=== PATIENT | male | born 1985 | race Caucasian/White ===

== ENCOUNTER 2021-07-28 21:13 | Emergency (ER) | payer MEDICARE, MEDICAID, SELFPAY | END 2021-07-28 21:30 | disposition left against medical advice (07) | PROVIDERS: Emergency Provider Emergency Medicine | DX: M79.10 Myalgia, unspecified site (principal) ==

== ENCOUNTER 2021-07-29 14:40 | Emergency (ER) | payer MEDICARE, MEDICAID, SELFPAY ==
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
[2021-07-29 15:01] VITALS: BMI 23.7
[2021-07-29 15:13] VITALS: BP 157/91; PULSE 53; RESP 14; O2SAT 98
[2021-07-29 16:24] LABS: Amphetamine Screen Urine Not Detected (Not Detect); Barbiturates, Urine Not Detected (Not Detect); Benzodiazepines Screen Urine Not Detected (Not Detect); Cannabinoid Screen Urine Not Detected (Not Detect); Cocaine Screen Urine POSITIVE (Not Detect); Fentanyl, urine POSITIVE (Not Detect); Opiate Screen Urine POSITIVE (Not Detect); Phencyclidine Screen Urine Not Detected (Not Detect)
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
--- NOTE | 2021-07-29 17:14 | MHC.CARE ---
CARE Team spoke briefly to patient in 13H regarding his mental health and substance use; he declined needing treatment for either. He acknowledged that he is in trouble because he owes money to a dealer, was unable to say what would be most helpful to him at this time, I've just gotta face this. Patient stated that he is compliant with medication, has providers, and does not want referrals. Lengthy conversation with patient's mother in the ED waiting room, she is very concerned about her son, is only recently started using heroin, he said 6 mos. and has rapidly lost control. Is using excessive amounts daily, she found hundreds of empty heroin wrappers in his room is spending his SSI check in 1-2 days on drugs, not coming home much, has lost weight. Is letting strangers into the family home while parents are asleep or out, driving people places, giving money, seems exploited. Patient's mother applied for a Section 35 and it was approved to go before a youth court judge but police were unable to find patient so after 5 days it . Patient has a diagnosis of Schizoaffective D/O and has been stable on Abilify for about 2 years, is overdue for injection by a few days, she reported that he will quickly decompensate when off medication. Offered validation, encouragement, reflective listening to patient's mother. She accepted information about [facility], a support group for family/loved ones of people suffering from addiction. Will go back to court on Saturday morning and reapply. Communicated with MD and Recovery Team.
== END 2021-07-29 17:32 | disposition home or self-care (01) ==
PROVIDERS: Emergency Provider Emergency Medicine
DX: S01.81XA Laceration without foreign body of other part of head, initial encounter (principal); G44.309 Post-traumatic headache, unspecified, not intractable; F25.9 Schizoaffective disorder, unspecified; F11.90 Opioid use, unspecified, uncomplicated; W26.9XXA Contact with unspecified sharp object(s), initial encounter; Y93.9 Activity, unspecified; Y92.9 Unspecified place or not applicable; Y99.9 Unspecified external cause status; Z79.899 Other long term (current) drug therapy
CPT/HCPCS: 12013; 80307; 99284; 99285

== ENCOUNTER 2021-10-24 04:32 | Emergency (ER) | payer MEDICARE, MEDICAID, SELFPAY ==
[2021-10-24 04:39] VITALS: BP 134/89; BP 148/96; PULSE 100; PULSE 93; RESP 16; TEMP 36.6; O2SAT 96; O2SAT 97; BMI 26.6
--- NOTE | 2021-10-24 04:48 | ECG_ITS ---
Test Reason : OVERDOSE Blood Pressure : / mmHG Vent. Rate : 089 BPM Atrial Rate : 089 BPM P-R Int : 150 ms QRS Dur : 096 ms QT Int : 362 ms P-R-T Axes : 072 031 036 degrees QTc Int : 440 ms Normal sinus rhythm Normal ECG No previous ECGs available Referred By: Isha Kennedy Electronically Signed By:Deepak Gutiérrez
[2021-10-24 06:18] VITALS: BP 121/87; PULSE 86; RESP 18; O2SAT 96
[2021-10-24] MEDS: Naloxone HCl Nasal TAKE HOME 4 MG SPRAY NOSTRILALT (06:39)
[2021-10-24] MEDS: Ondansetron ODT 4 MG TAB.RAPDIS TRANSLINGU (06:39)
--- NOTE | 2021-10-24 06:40 | ED.OVERDOSE ---
HPI - Overdose General Chief Complaint: Overdose Stated Complaint: overdose Time Seen by Provider: 10/24/21 06:32 Source: patient Mode of arrival: EMS History of Present Illness HPI Narrative: This is a 36-year-old male who states that he was snorting cocaine all day and than did a half bag of heroin and states that took less than a minute and then the next thing he woke up the ambulance was there. He denies any suicidal ideation in states that he recently got out of a rehab program. As per EMS patient received a total of 6 mg of Narcan from them and initially received 2 mg from police when patient was found unresponsive. Otherwise, patient has no acute complaints. Related Data Allergies Allergy/AdvReac Type Severity Reaction Status Date / Time Penicillins [PENICILLINS] Allergy Unknown RASH Unverified 07/14/20 15:43 Review of Systems Review of Systems: Pertinent pertinent positives and negatives as stated in HPI 10 point review of systems is otherwise negative. PMFSH Past Medical History Source: nursing notes reviewed Medical History Schizoaffective disorder Social History Social History Patient Tobacco Use Status: Tobacco use Unknown Use of substances other than those prescribed or required for medical reasons: Yes Substance Use Type: Crack/Cocaine Advance Directives: No Advance Directives Information Provided: Yes Physical Exam Vital Signs: Vital Signs: Last Vital Signs Temp 97.8 F 10/24/21 04:39 Pulse 86 10/24/21 06:18 Resp 18 10/24/21 06:18 BP 121/87 10/24/21 06:18 Pulse Ox 96 10/24/21 06:18 BMI result Body Mass Index 26.6 VITAL SIGNS: Reviewed. GENERAL: Well developed, well nourished, in no acute distress. HEAD: Normocephalic/atraumatic EYES: PERRLA, EOMI LUNGS: Normal breath sounds. No adventitious sounds or accessory muscle use. SpO2<96> CARDIOVASCULAR: Regular rate and rhythm without noted murmurs ABDOMEN: Soft, non-tender, non-distended with bowel sounds. NEUROLOGIC: Alert and oriented x 4. Course Course Course Narrative: 36-year-old male with history and clinical presentation consistent with accidental overdose and was observed for 2 hours and noted to tolerate oral intake prior to being discharged in stable condition. Patient was discharged with home Narcan. MDM - Overdose ECG Data Attestation: I personally reviewed and interpreted this ECG as follows: Interpretation: Normal sinus rhythm, HR-89, no STEMI, AK/QRS/QTC is within normal limits. Discharge Plan Discharge Clinical Impression: Drug overdose Patient Disposition: Home, Self-Care Instructions: Adult Overdose (ED) Additional Instructions: Stop doing drugs. Interventions: ED Discharge Assessment Last Done: 10/24/21 06:41
--- NOTE | 2021-10-24 06:44 | PC.NURSE ---
pt denies SI/Hi. rehab support and services offered pt refused at this time. Provider is aware. Narcan education completed at discharge with medication.
== END 2021-10-24 06:45 | disposition home or self-care (01) ==
PROVIDERS: Emergency Provider Student in an Organized Health Care Education/Training Program
DX: T40.1X1A Poisoning by heroin, accidental (unintentional), initial encounter (principal); Y92.9 Unspecified place or not applicable; F14.90 Cocaine use, unspecified, uncomplicated
CPT/HCPCS: 93005; 99284; 99285

== ENCOUNTER 2021-10-28 12:16 | Inpatient (IN) | payer MEDICARE, MEDICAID, SELFPAY ==
[2021-10-28] VITALS (7 sets, daily range): BP systolic 104–141; BP diastolic 65–92; PULSE 88–102; RESP 18–28; O2SAT 90–98; BMI 26.6
--- NOTE | ~2021-10-28 | XR_ITS ---
EXAMINATION: XR CHEST CLINICAL INFORMATION: Overdose, hypoxia COMPARISON: None TECHNIQUE: Portable AP upright view of the chest was obtained. FINDINGS: Cardiac and mediastinal silhouettes are normal in appearance. The lungs and pleural spaces are clear. No acute osseous abnormalities. XR/XR chest 1V IMPRESSION: Unremarkable examination.
--- NOTE | 2021-10-28 12:29 | ED_ITS ---
HPI - Overdose General Chief Complaint: Overdose Stated Complaint: IPIOID OD,12MG NARCAN GIVEN,94% ON 4LPM Time Seen by Provider: 10/28/21 12:20 Source: patient, family, EMS and old records reviewed Mode of arrival: EMS Limitations: no limitations History of Present Illness HPI Narrative: 36 y/o male with history of polysubstance IV drug abuse (heroin and cocaine) who just got out of detox 2 weeks ago presents to the ER from home via EMS after his mother found him unresponsive and blue after he used 1 bag of heroin. Mother gave him 4 mg IN narcan and called 911. Police administered a total of 12 mg in 3 rounds. He was vomiting when he woke up. EMS found him hypoxic and he was placed on 4L NC with SpO2 91-95%. He arrives to the ER AAOx3, coughing and hypoxic requiring 4L. He reports nausea and vomited x2. complaint: accidental overdose Onset (ago): minute(s) Timing confirmed by: family member Intent: unknown How Overdose Was Discovered: family/friend present at time Context: Accidental Overdose: wanted to get high Treatments Prior to Arrival: oxygen and narcan Related Data Home Medications Medication Instructions Recorded Confirmed aripiprazole 400 mg intramuscular 1 vial IM Q4W 10/28/21 10/28/21 suspension,extended release (Abilify Maintena) Allergies Allergy/AdvReac Type Severity Reaction Status Date / Time Penicillins [PENICILLINS] Allergy Unknown RASH Unverified 07/14/20 15:43 Review of Systems Review of Systems: Constitutional: No Fever, No Chills ENT/Mouth: No sore throat, No Rhinorrhea, No Swallowing Difficulty Eyes: No Eye Pain, No Swelling, No Redness Cardiovascular: No Chest Pain, + SOB, No Orthopnea, No Edema Respiratory: + Cough, No Sputum, No Wheezing, No dyspnea Gastrointestinal: + Nausea, + Vomiting, No Diarrhea, No abdominal Pain Genitourinary: No Dysuria, No Urinary Frequency, No Hematuria Musculoskeletal: No joint pain, No Myalgias Skin: No Skin Lesions, No rash Neuro: No Weakness, No Numbness, No Dizziness, + Headache Psych: No Anxiety/Panic, No Depression Heme/Lymph: No Bruising, No Lymphadenopathy PMFSH Past Medical History Medical History Schizoaffective disorder Social History Social History Alcohol intake: unknown Patient Tobacco Use Status: Tobacco use Unknown Use of substances other than those prescribed or required for medical reasons: Yes Substance Use Type: Crack/Cocaine and Heroin Substance Use Frequency: Chronic Longstanding Substance Use Frequency Other:: recently at detox Last Used Substance: Just Prior to Admission Any prior treatment program specific to substance use: Yes Advance Directives: No Advance Directives Information Provided: No Physical Exam Vital Signs: Vital Signs: Last Vital Signs Pulse 99 10/28/21 15:18 Resp 18 10/28/21 15:18 BP 104/65 10/28/21 12:21 Pulse Ox 92 10/28/21 13:58 BMI result Body Mass Index 26.6 Appearance: Alert. Oriented X3. On nasal cannula on EM Sstretcher - no dis tress Eyes: Pupils equal, round and reactive to light, 4mm ENT: Pharynx normal. Moist mucus membranes Neck: Normal inspection. Neck supple. CVS: Normal heart rate and rhythm. Pulses normal. Respiratory: No respiratory distress. Breath sounds coarse throughout without rhonchi or wheezing Abdomen: Soft and nontender. +BS x4 Skin: Skin warm and dry. Normal skin color. Normal skin turgor. Large well- demarcated erythematous rash on the central chest wall with flakiness consistent with history of psoriasis Extremities: No lower extremity edema. LUE with track mora from hand to AC Neuro: Oriented X 3. No motor deficit. No sensory deficit. Nonfocal Course Course Course Narrative: 36 y/o male with history of polysubstance abuse presenting with hypoxia after an unintentional overdose requiring multiple doses of narcan. + vomiting and coughing, no increased WOB or difficulty breathing. He is at risk for narcan induced pulmonary edema however his hypoxia seems to be related to aspiration pneumonitis at this time. CXR and labs ordered. IVF and zofran ordered. Now on venti-mask 55% FiO2 with SpO2 93% Reevaluation(s) Reevaluation #1: Chest x-ray without pneumonia. His hypoxia is most likely due to aspiration pneumonitis. No role for systemic steroids or empiric antibiotics at this time. Supportive care with supplemental oxygen is being provided. He remains awake and alert, asking to drink despite just vomiting a few moments prior. IV fluids and Zofran given. Reevaluation #2: Patient continues to desat while on 55% VM. Will call RT to the bedside to placed on high-flow for little bit of PEEP. Will give a trial of albuterol inhaled as well. Nebulized corticosteroids are not in stock per pharmacy. Reevaluation #3: Respiratory place patient on 100% high-flow nasal cannula with SpO2 93-94%. He is drowsy but easily arouses to voice. Will require admission to C verses ICU. Will continue to monitor for pulmonary edema however he has a normal respiratory rate with no increased work of breathing at this time. Per Nursing Marketing Reporting Analyst only 2 ICU nurses today and tomorrow, will have to admit to [facility] and closely monitor on continuous pulse oximetry. Hospitalist TT for admission Additional Reevaluation(s): Patient able to be weaned to 55% high-flow with sats in the mid 90s. MDM - Overdose Medical Records Attestation: I reviewed the patient's medical records. Lab Data Attestation: I reviewed the patient's lab results. Result diagrams: 10/28/21 12:41 10/28/21 12:41 Labs: Lab Results 10/28/21 10/28/21 10/28/21 Range/Units 12:41 12:41 12:41 WBC 10.0 (4.8-10.8) X10*3/uL RBC 5.11 (4.60-5.80) X10*6/uL Hgb 15.7 (14.0-18.0) g/dl Hct 46.7 (42.0-52.0) % MCV 91.4 (80.0-98.0) fL MCH 30.7 (27.0-33.0) pg MCHC 33.6 (31.0-36.0) g/dl RDW 13.0 (11.0-16.0) % Plt Count 243 (160-400) X10*3/uL MPV 9.9 (9.4-12.4) fL Immature Gran % (Auto) 1.7 H (0.0-0.4) % Neut % (Auto) 86.4 H (45-73) % Lymph % (Auto) 9.4 L (20-40) % Dickens % (Auto) 2.0 (2-11) % Eos % (Auto) 0.2 (0-4) % Baso % (Auto) 0.3 (0-2) % Lymph # (Auto) 0.9 L (1.2-4.9) X10*3/uL Dickens # (Auto) 0.2 (0.1-1.2) X10*3/uL Eos # (Auto) 0.0 (0.0-0.4) X10*3/uL Baso # (Auto) 0.0 (0.0-0.2) X10*3/uL Abs Immat Gran (auto) 0.17 H (0.00-0.03) X10*3/uL Absolute Neuts (auto) 8.7 H (2.0-8.3) x10*3/uL Absolute Nucleated RBC 0.000 (0.0-0.012) X10*3/uL Nucleated RBC % (auto) 0.0 (0.0-0.2) /100WBC Sodium 138 (135-145) mmol/L Potassium 4.2 (3.3-5.1) mmol/L Chloride 104 (96-108) mmol/L Carbon Dioxide 24 (22-29) mmol/L Anion Gap 14 (12-20) BUN 18 H (9-16) mg/dL Creatinine 1.26 (0.5-1.4) mg/dL Estim Creat Clear Calc 79.9 Estimated GFR > 60 Random Glucose 321 H (60-115) mg/dL Estimat Average Glucose mg/dL Hemoglobin A1c % % Lactic Acid (0.5-2.0) mmol/L Calcium 9.2 (8.4-10.2) mg/dL Magnesium 2.3 (1.6-2.6) mg/dL Total Bilirubin 1.2 H (0.0-1.0) mg/dL Direct Bilirubin 0.5 (0.0-0.5) mg/dL AST 28 (5-37) U/L ALT 50 H (0-40) U/L Alkaline Phosphatase 90 (39-117) U/L Total Protein 6.9 (6.5-8.0) g/dL Albumin 4.1 (3.5-5.0) g/dL Ethyl Alcohol mg/dL COVID-19 (DELMI) Negative (Negative) COVID-19 Clin Com See Note 10/28/21 10/28/21 10/28/21 Range/Units 12:41 12:41 12:41 WBC (4.8-10.8) X10*3/uL RBC (4.60-5.80) X10*6/uL Hgb (14.0-18.0) g/dl Hct (42.0-52.0) % MCV (80.0-98.0) fL MCH (27.0-33.0) pg MCHC (31.0-36.0) g/dl RDW (11.0-16.0) % Plt Count (160-400) X10*3/uL MPV (9.4-12.4) fL Immature Gran % (Auto) (0.0-0.4) % Neut % (Auto) (45-73) % Lymph % (Auto) (20-40) % Dickens % (Auto) (2-11) % Eos % (Auto) (0-4) % Baso % (Auto) (0-2) % Lymph # (Auto) (1.2-4.9) X10*3/uL Dickens # (Auto) (0.1-1.2) X10*3/uL Eos # (Auto) (0.0-0.4) X10*3/uL Baso # (Auto) (0.0-0.2) X10*3/uL Abs Immat Gran (auto) (0.00-0.03) X10*3/uL Absolute Neuts (auto) (2.0-8.3) x10*3/uL Absolute Nucleated RBC (0.0-0.012) X10*3/uL Nucleated RBC % (auto) (0.0-0.2) /100WBC Sodium (135-145) mmol/L Potassium (3.3-5.1) mmol/L Chloride (96-108) mmol/L Carbon Dioxide (22-29) mmol/L Anion Gap (12-20) BUN (9-16) mg/dL Creatinine (0.5-1.4) mg/dL Estim Creat Clear Calc Estimated GFR Random Glucose (60-115) mg/dL Estimat Average Glucose 94 mg/dL Hemoglobin A1c % 4.9 % Lactic Acid 3.1 H* (0.5-2.0) mmol/L Calcium (8.4-10.2) mg/dL Magnesium (1.6-2.6) mg/dL Total Bilirubin (0.0-1.0) mg/dL Direct Bilirubin (0.0-0.5) mg/dL AST (5-37) U/L ALT (0-40) U/L Alkaline Phosphatase (39-117) U/L Total Protein (6.5-8.0) g/dL Albumin (3.5-5.0) g/dL Ethyl Alcohol < 10 mg/dL COVID-19 (DELMI) (Negative) COVID-19 Clin Com ECG Data Attestation: I personally reviewed and interpreted this ECG as follows: ECG interpretation date: 10/28/21 ECG interpretation time: 14:39 Interpretation: normal sinus rhythm, HR 91 bpm, normal IA interval, No ST segment elevations or depressions Critical Care Time Critical Care Time Critical Care Time: Yes Total Critical Care Time: 42 Attestation: I have personally provided critical care time exclusive of time spent on separately billable procedures. Time includes review of lab data, radiology results, discussion with consultants, and monitoring for potential decompensation. Intervention performed as documented. Discharge Plan Discharge Clinical Impression: Aspiration pneumonitis, Acute respiratory failure with hypoxia Drug overdose Qualifiers: Encounter type: initial encounter Injury intent: accidental or unintentional Qualified Code(s): T50.901A - Poisoning by unspecified drugs, medicaments and biological substances, accidental (unintentional), initial encounter Patient Disposition: Admitted As Inpatient
[2021-10-28 12:48] LABS: MANUAL DIFF FLAG NO
[2021-10-28 12:49] LABS: Basophils Percent Auto 0.3 % (0-2); Eosinophils Percent Auto 0.2 % (0-4); Hematocrit 46.7 % (42.0-52.0); Hemoglobin 15.7 g/dl (14.0-18.0); Imm Gran Abs Auto 0.17 X10*3/uL (0.00-0.03); Imm Gran Pct Auto 1.7 % (0.0-0.4); Lymphocytes Absolute Auto 0.9 X10*3/uL (1.2-4.9); Lymphocytes Percent Auto 9.4 % (20-40); Mean Corpuscular HGB Conc 33.6 g/dl (31.0-36.0); Mean Corpuscular Hemoglobin 30.7 pg (27.0-33.0); Mean Corpuscular Volume 91.4 fL (80.0-98.0); Mean Platelet Volume 9.9 fL (9.4-12.4); Monocytes Absolute Auto 0.2 X10*3/uL (0.1-1.2); Neutrophils Absolute Auto 8.7 x10*3/uL (2.0-8.3); Neutrophils Percent Auto 86.4 % (45-73); Platelet Count 243 X10*3/uL (160-400); Red Blood Count 5.11 X10*6/uL (4.60-5.80)
[2021-10-28] MEDS: 0.9 % Sodium Chloride 1,000 ML 999 ML IVCONT (12:49)
[2021-10-28] MEDS: ondansetron HCL 4 MG/2 ML VIAL IVPUSH (12:49)
[2021-10-28 13:01] LABS: Lactic Acid 3.1 mmol/L (0.5-2.0)
[2021-10-28 13:04] LABS: Alanine Aminotransferase 50 U/L (0-40); Albumin Level 4.1 g/dL (3.5-5.0); Alkaline Phosphatase 90 U/L (39-117); Anion Gap 14 (12-20); Aspartate Amino Transferase 28 U/L (5-37); Bilirubin Direct 0.5 mg/dL (0.0-0.5); Bilirubin Total 1.2 mg/dL (0.0-1.0); Blood Urea Nitrogen 18 mg/dL (9-16); Calcium 9.2 mg/dL (8.4-10.2); Carbon Dioxide 24 mmol/L (22-29); Chloride 104 mmol/L (96-108); Creatinine Clr Calc Pharmacy 79.9; Estimated Glomerular Filt Rate > 60; Ethanol < 10 mg/dL; Glucose Random 321 mg/dL (60-115); Magnesium 2.3 mg/dL (1.6-2.6); Potassium 4.2 mmol/L (3.3-5.1); Sodium 138 mmol/L (135-145); Total Protein 6.9 g/dL (6.5-8.0)
[2021-10-28 13:05] LABS: COVID-19 Test Negative (Negative)
[2021-10-28 13:25] LABS: Estimated Average Glucose 94 mg/dL; Hemoglobin A1c % 4.9 %
--- NOTE | 2021-10-28 13:31 | PC.NURSE ---
pt maxed out on venti mask. rt called for hiflow per pa
[2021-10-28] MEDS: Albuterol Sulfate (0.083%) 2.5 MG/3 ML VIAL.NEB INHALE (13:48)
--- NOTE | 2021-10-28 14:10 | ECG_ITS ---
Test Reason : DSYPNEA Blood Pressure : / mmHG Vent. Rate : 091 BPM Atrial Rate : 091 BPM P-R Int : 138 ms QRS Dur : 090 ms QT Int : 360 ms P-R-T Axes : 075 044 051 degrees QTc Int : 442 ms Normal sinus rhythm Normal ECG When compared with ECG of 24-OCT-2021 04:48, No significant change was found Referred By: Geovanna Deal Electronically Signed By:Deepak Gutiérrez
--- NOTE | 2021-10-28 14:20 | PHA.MEDREC ---
Pharmacy Consult ? Medication Reconciliation Pharmacy has completed the medication reconciliation. Called and spoke with patients mother, Dorothy, she states the only medication Marvin takes is Abilify Maintena and he is overdue for his dose.
[2021-10-28 14:47] LABS: Reflex Lactate? Lactic Acid Added
--- NOTE | 2021-10-28 15:09 | P.HPHOSP_ITS ---
History of Present Illness Date of Service: 10/28/21 Chief Complaint: overdose, altered mentation a 36 years old male with schizoaffective disorder and IV polysubstance abuse who presented to the hospital by EMS after being found unresponsive and blue at home. His mother found him with 1 bag of Heroin next to him. the mother gave him 4 mg of IM Narcan and called 911 please administer total of 12 mg as well in 3 rounds and the patient woke up but started to vomit. Found hypoxic and was placed on oxygen supplement by EMS and he brought to the hospital coughing and hypoxic. The Emergency no he was alert but hypoxic. Requiring high-flow oxygen supplement Of 50 L 100%. Discussed with intensive care to admitted to ICU but with nurses shortage there is no place for the patient in the unit so hospitalist team were asked to admit IMC with ICU following case of deterioration. Admitted for further evaluation and treatment. Review of Systems Review of Systems: No fever, chills But feel generalized weakness No chest pain, palpitation shortness of breath, coughing No abdominal pain, nausea or vomiting No urinary symptoms No any rash or wounds PMFSH Medical History Schizoaffective disorder Pertinent family history: HTN in Parent Social History Alcohol intake: unknown Patient Tobacco Use Status: Tobacco use Unknown Use of substances other than those prescribed or required for medical reasons: Yes Substance Use Type: Crack/Cocaine and Heroin Substance Use Frequency: Chronic Longstanding Substance Use Frequency Other:: recently at detox Last Used Substance: Just Prior to Admission Any prior treatment program specific to substance use: Yes Advance Directives: No Advance Directives Information Provided: No Meds Allergies Allergy/AdvReac Type Severity Reaction Status Date / Time Penicillins [PENICILLINS] Allergy Unknown RASH Unverified 07/14/20 15:43 Active Medications: Current Medications Acetaminophen (Acetaminophen 325 Mg Tablet) 650 mg PO Q6H PRN PRN Reason: Pain, Mild (Pain Scale 1-3) Albuterol/Ipratropium (Albuterol/Iprat 2.5/0.5mg 3 Ml Ampul.Neb) 3 ml INHALE RQ4H WHILE AWAKE CHALO Enoxaparin Sodium (Enoxaparin Sodium 40 Mg/0.4 Ml Syringe) 40 mg SUBCUT Q24H [facility] Guaifenesin (Guaifenesin La 600 Mg Tab.Er.12h) 600 mg PO BID [facility] Levofloxacin (Levaquin) 500 mg in 100 mls @ 100 mls/hr IV Q24H [facility] Methylprednisolone Sodium Succinate (Methylprednisolone Sod Succ 40 Mg/Ml Vial) 40 mg IVPUSH Q6H [facility] Naloxone HCl (Naloxone Hcl 0.4 Mg/Ml Vial) 0.2 mg IVPUSH Q2M PRN PRN Reason: Opiate Reversal Ondansetron HCl (Ondansetron Hcl 4 Mg/2 Ml Vial) 4 mg IVPUSH Q8H PRN PRN Reason: Nausea and Vomiting Pharmacy Consult (Consult Rx Perform Med Rec) 1 each MISCELLANE ONCE PRN PRN Reason: Consult order Sodium Chloride (0.9 % Sodium Chloride Flush 3 Ml Syringe) 3 ml IVFLUSH QSHIFT [facility] Home Medications Medication Instructions Recorded Confirmed Last Taken Type aripiprazole 400 mg intramuscular 1 vial IM Q4W 10/28/21 10/28/21 09/28/21 History suspension,extended release (Abilify Maintena) Physical Exam Vital Signs and Narrative: Vital Signs: Last Vital Signs Pulse 88 10/28/21 13:58 Resp 20 10/28/21 13:58 BP 104/65 10/28/21 12:21 Pulse Ox 92 10/28/21 13:58 BMI result Body Mass Index 26.6 Const: Other: Constitutional : Alert, oriented, in mild respiratory distress Neck : Normal inspection, Supple Cardiovascular : RRR, S1 S2, no lower extremity edema Respiratory : fair bilateral air entry, reason fine crackles, scattered expiratory wheezes, on high-flow 50 L 100% Gastrointestinal: soft, lax, Normal bowel sounds, Non tender Skin : Warm, Dry Neurological : Alert & oriented x3, No focal deficit Results Labs CBC and Chem 7: 10/28/21 12:41 10/28/21 12:41 Labs: Laboratory Results - last 24 hr 10/28/21 10/28/21 10/28/21 12:41 12:41 12:41 MCV 91.4 MCH 30.7 MCHC 33.6 RDW 13.0 Plt Count 243 MPV 9.9 Immature Gran % (Auto) 1.7 H Neut % (Auto) 86.4 H Lymph % (Auto) 9.4 L Ceiba % (Auto) 2.0 Eos % (Auto) 0.2 Baso % (Auto) 0.3 Lymph # (Auto) 0.9 L Ceiba # (Auto) 0.2 Eos # (Auto) 0.0 Baso # (Auto) 0.0 Abs Immat Gran (auto) 0.17 H Absolute Neuts (auto) 8.7 H Absolute Nucleated RBC 0.000 Nucleated RBC % (auto) 0.0 Anion Gap 14 Estim Creat Clear Calc 79.9 Estimated GFR > 60 Random Glucose 321 H Estimat Average Glucose Hemoglobin A1c % Lactic Acid Calcium 9.2 Magnesium 2.3 Total Bilirubin 1.2 H Direct Bilirubin 0.5 AST 28 ALT 50 H Alkaline Phosphatase 90 Total Protein 6.9 Albumin 4.1 Ethyl Alcohol COVID-19 ([facility]) Negative COVID-19 Clin Com See Note 10/28/21 10/28/21 10/28/21 12:41 12:41 12:41 MCV MCH MCHC RDW Plt Count MPV Immature Gran % (Auto) Neut % (Auto) Lymph % (Auto) Ceiba % (Auto) Eos % (Auto) Baso % (Auto) Lymph # (Auto) Ceiba # (Auto) Eos # (Auto) Baso # (Auto) Abs Immat Gran (auto) Absolute Neuts (auto) Absolute Nucleated RBC Nucleated RBC % (auto) Anion Gap Estim Creat Clear Calc Estimated GFR Random Glucose Estimat Average Glucose 94 Hemoglobin A1c % 4.9 Lactic Acid 3.1 H* Calcium Magnesium Total Bilirubin Direct Bilirubin AST ALT Alkaline Phosphatase Total Protein Albumin Ethyl Alcohol < 10 COVID-19 ([facility]) COVID-19 Clin Com Imaging Radiologist's Impressions: Impressions Chest X-Ray 10/28/21 12:47 IMPRESSION: Unremarkable examination. Assessment and Plan (1) Aspiration pneumonitis: Status: Acute (2) Acute respiratory failure with hypoxia: Status: Acute (3) Drug overdose: Qualifiers: Encounter type: initial encounter Injury intent: accidental or unintentional Qualified Code(s): T50.901A - Poisoning by unspecified drugs, medicaments and biological substances, accidental (unintentional), initial encounter Status: Acute (4) Lactic acidosis: Status: Acute a 36 years old male with schizoaffective disorder and IV polysubstance a buse who presented to the hospital by EMS after being found unresponsive and blue at home. Acute hypoxic respiratory failure Likely secondary to aspiration pneumonitis/ pneumonia Patient vomited after being overdose On high-flow oxygen 50 L, 100% Discussed with ICU, no enough nurses to take care of the patient IR, will be monitored in IMC meanwhile Started methylprednisone 40 mg q.6 Start DuoNebs Q for Get critical consult Drug overdose Recently done with detox program To get addiction team Keep Narcan p.r.n. as needed Neuro checks Q 2 Lactic acidosis Secondary to overdose and collapse To give 1L of fluids for now DVT PPX Lovenox Quality Stroke Does the patient have a stroke diagnosis?: No VTE Prior VTE?: No VTE Risk Level:: Medical - moderate - high VTE Device Contraindication: Treatment Not Indicated VTE Drug Contraindication: N/A - Med Ordered
[2021-10-28] MEDS: Albuterol/Iprat 2.5/0.5MG 3 ML AMPUL.NEB INHALE ×2 (15:17→19:17)
[2021-10-28] MEDS: levoFLOXacin/D5W 500 MG/100 ML PIGGYBACK 100 MG IV (15:40)
[2021-10-28] MEDS: methylPREDNISolone Sod Succ 40 MG/ML VIAL IVPUSH (15:40)
[2021-10-28] MEDS: 0.9 % Sodium Chloride 1,000 ML 999 ML IV (15:41)
[2021-10-28] MEDS: guaiFENesin LA 600 MG TAB.ER.12H PO ×2 (15:41→20:11)
[2021-10-28 16:10] LABS: ~Lactic Acid-LAB USE ONLY 2.8 mmol/L (0.5-2.0)
--- NOTE | 2021-10-28 17:10 | MHC.RECOVSUP ---
? Reason for consult:Recovery Information o?? Current location ED-22 ? o?? Identified substance use concern Heroin ? ?? Overdose ?? Support ? Intervention: o?? Community resources provided o?? Harm reduction discussion ? Plan: o?? Patient awaiting crisis evaluation o?? Patient to follow up with [facility] after discharge ? Additional information: Met with Pt. Pt. states that he does not want detox. Talked about what had happen and how he got here. Pt. states that he did a bag of heroin and that's the last he remember.?Gave Pt. some information and resources.
[2021-10-28 17:53] LABS: Reflex Lactate? 2 Y
[2021-10-28 18:37] LABS: ~Lactic Acid-LAB USE ONLY 2.3 mmol/L (0.5-2.0)
[2021-10-28] MEDS: Enoxaparin Sodium 40 MG/0.4 ML SYRINGE SUBCUT (20:11)
--- NOTE | 2021-10-28 20:14 | PC.NURSE ---
pt a&o, pt denies any increase of sob, pt able to communicate in in full sentences. medicated per dec.
[2021-10-28 21:38] LABS: Appearance Urine CLEAR; Color Urine YELLOW; Glucose Urine UA 500 MG/DL (NEG); Leukocyte Esterase Urine NEG (NEG); Nitrite Urine NEG (NEG); Specific Gravity - Urine 1.025 (1.005-1.025); Urine Blood NEG (NEG); Urine Ketones NEG (NEG); Urine Protein TRACE MG/DL (NEG-TRACE)
[2021-10-28 23:51] LABS: Amphetamine Screen Urine Not Detected (Not Detect); Barbiturates, Urine Not Detected (Not Detect); Benzodiazepines Screen Urine Not Detected (Not Detect); Cannabinoid Screen Urine Not Detected (Not Detect); Cocaine Screen Urine POSITIVE (Not Detect); Fentanyl, urine POSITIVE (Not Detect); Opiate Screen Urine Not Detected (Not Detect); Phencyclidine Screen Urine Not Detected (Not Detect)
[2021-10-29] VITALS: PULSE 93; RESP 20; O2SAT 92
[2021-10-29] MEDS: 0.9 % Sodium Chloride Flush 3 ML SYRINGE IVFLUSH (01:06)
[2021-10-29] MEDS: methylPREDNISolone Sod Succ 40 MG/ML VIAL IVPUSH ×2 (01:06→04:55)
--- NOTE | 2021-10-29 01:10 | PC.NURSE ---
pt a&o, pt did de-sat into the high 80's. pt placed on [id number] Sat's improved into the low 90's. Respiratory notified and into assess pt. pt place on nc with humidification stating in mid 90's. pt is able to speack in full sentences, no retractions. pt repositioned for comfort. Will continue to monitor.
[2021-10-29 01:14] VITALS: BP 113/65; PULSE 93; RESP 18; TEMP 37.2; O2SAT 97
--- NOTE | 2021-10-29 02:08 | PC.NURSE ---
pt a&o, no sign of increase sob or chest pain. pt remain on high flow, pt is stating in the 90's. pt able to tolerate po drink and food. pt is sleeping at this time.
[2021-10-29 03:19] VITALS: PULSE 92; RESP 20; O2SAT 98
[2021-10-29 06:15] VITALS: BP 111/67; PULSE 78; RESP 12; O2SAT 99
[2021-10-29 06:54] LABS: Hematocrit 40.8 % (42.0-52.0); Hemoglobin 14.1 g/dl (14.0-18.0); Mean Corpuscular HGB Conc 34.6 g/dl (31.0-36.0); Mean Corpuscular Hemoglobin 31.4 pg (27.0-33.0); Mean Corpuscular Volume 90.9 fL (80.0-98.0); Mean Platelet Volume 9.7 fL (9.4-12.4); Platelet Count 178 X10*3/uL (160-400); Red Blood Count 4.49 X10*6/uL (4.60-5.80); Red Cell Distribution Width 13.1 % (11.0-16.0); White Blood Count 12.2 X10*3/uL (4.8-10.8)
[2021-10-29 07:13] LABS: Anion Gap 10 (12-20); Blood Urea Nitrogen 13 mg/dL (9-16); Calcium 8.5 mg/dL (8.4-10.2); Carbon Dioxide 25 mmol/L (22-29); Chloride 104 mmol/L (96-108); Creatinine Clr Calc Pharmacy 137.9; Estimated Glomerular Filt Rate > 60; Glucose Random 159 mg/dL (60-115); Potassium 4.5 mmol/L (3.3-5.1); Sodium 134 mmol/L (135-145)
[2021-10-29 07:53] VITALS: PULSE 87; RESP 18; O2SAT 98
[2021-10-29] MEDS: Albuterol/Iprat 2.5/0.5MG 3 ML AMPUL.NEB INHALE ×2 (07:53)
--- NOTE | 2021-10-29 09:40 | PM.EVENT ---
Event Note Date of Service: 10/29/21 Event Note: Discharge note Discharge diagnosis Acute hypoxic respiratory failure aspiration pneumonitis drug overdose Lactic acidosis patient seen and evaluated this morning while in his room. On room refusing to wear oxygen. He decided to leave against with cool advised. He understands the risk of leaving without finishing his treatment which includes worsening shortness of breath, possible infection and . He understood and he reports he is not going to use any more drugs. He signed AMA paperwork and left.
--- NOTE | 2021-10-29 10:21 | PC.NURSE ---
pt arrived on unit at at 0900. anxious pacing. was evaluated by Dr Teague. iv removed risks of leaving ama explained pt stated understanding. pt left floor at 0914 escorted to ed for his belongings
--- NOTE | 2021-10-29 11:46 | PM.EVENT ---
Event Note Date of Service: 10/29/21 Event Note: Addiction consult note: Consult requested for patient with OUD and 2 recent unintentional overdoses requiring narcan. This designer writer went to see patient in room 370 earlier this AM and per RN patient had discharged AMA--evaluation not completed.
== END 2021-10-29 09:15 | disposition left against medical advice (07) | DRG 917 ==
LOC: HO.ED 13:55 → HO.EDOVER 15:13 → HO.S3 10-29 06:43
PROVIDERS: Physician Assistant; Admitting Provider Student in an Organized Health Care Education/Training Program; Emergency Provider Emergency Medicine; Visit Provider Student in an Organized Health Care Education/Training Program
DX: T40.1X1A Poisoning by heroin, accidental (unintentional), initial encounter (principal); J69.0 Pneumonitis due to inhalation of food and vomit; J96.01 Acute respiratory failure with hypoxia; E87.2 Acidosis; Y92.009 Unspecified place in unspecified non-institutional (private) residence as the place of occurrence of the external cause; Z20.822 Contact with and (suspected) exposure to COVID-19; Z88.0 Allergy status to penicillin; Z79.899 Other long term (current) drug therapy
CPT/HCPCS: 36415; 71045; 80048; 80076; 80307; 81003; 82077; 83036; 83605; 83735; 85025; 85027; 87040; 87635; 93005; 94640; 96361; 96374; 99285; 99291; J1650; J1956; J2405; J2920

== ENCOUNTER 2022-04-19 02:33 | Emergency (ER) | payer MEDICARE, MEDICAID, SELFPAY ==
[2022-04-19 02:47] VITALS: BP 140/95; PULSE 83; RESP 16; TEMP 36.7; O2SAT 98; BMI 28.1
[2022-04-19 02:53] VITALS: BP 140/95; PULSE 82; O2SAT 98
[2022-04-19 06:29] VITALS: BP 123/72; PULSE 93; RESP 14; TEMP 36.6; O2SAT 96
--- NOTE | 2022-04-19 06:44 | ED_ITS ---
HPI - Overdose General Chief Complaint: Overdose Stated Complaint: unresponsive OD Time Seen by Provider: 04/19/22 06:44 Source: patient and EMS Mode of arrival: EMS History of Present Illness HPI Narrative: 36M brought in by EMS for overdose. EMS describes requiring 16mg of Narcan, but patient currently denies any intent for suicide and stated I haven't used recently . He denies any SOB or chest pain. Related Data Home Medications Medication Instructions Recorded Confirmed aripiprazole 400 mg intramuscular 1 vial IM Q4W 10/28/21 10/28/21 suspension,extended release (Abilify Maintena) Allergies Allergy/AdvReac Type Severity Reaction Status Date / Time Penicillins [PENICILLINS] Allergy Unknown RASH Unverified 07/14/20 15:43 Review of Systems Review of Systems: Pertinent positives and negatives as stated in the HPI and 10pt ROS is otherwise negative. [facility] Past Medical History Source: nursing notes reviewed Medical History Schizoaffective disorder Social History Social History Alcohol intake: current Alcohol intake frequency: a few times a week Alcohol type: beer Patient Tobacco Use Status: Current someday Tobacco user Smoked in Last 30 Days: Yes Use of substances other than those prescribed or required for medical reasons: Yes Substance Use Type: Heroin and Opiates Substance Use Frequency: Daily Advance Directives: No Advance Directives Information Provided: Yes Physical Exam Vital Signs: Vital Signs: Last Vital Signs Temp 97.8 F 04/19/22 06:29 Pulse 93 04/19/22 06:29 Resp 14 04/19/22 06:29 BP 123/72 04/19/22 06:29 Pulse Ox 96 04/19/22 06:29 O2 Del Method 04/19/22 06:29 BMI result Body Mass Index 28.1 Vital signs reviewed. GEN: NAD HEAD: NCAT, NC EYES: PERRLA< EOMI NECK: supple PULM: CTAB CVS: RRR, no JVD ABD: NT, ND, BS+ EXT: atraumatic Course Course Course Narrative: 36-year-old male with history and clinical presentation consistent with accidental overdose. He denies any suicidal or homicidal ideations and is not interested in detox at this time head states that he will make his own phone calls. He is otherwise stable for discharge after tolerating oral intake without difficulty. He was discharged with home Narcan. Discharge Plan Discharge Clinical Impression: Drug overdose Patient Disposition: Home, Self-Care Instructions: Naloxone (Into the nose), Adult Overdose (ED) Additional Instructions: Please call for outpatient detox programs. You have been provided with a list. Return to the ER for worsening symptoms. Prescriptions: No Action Abilify Maintena 400 mg suspension,extended rel recon 1 vial IM Q4W Interventions: ED Discharge Assessment Last Done: 04/19/22 06:58 Discharge Date/Time: 04/19/22 07:00
--- NOTE | 2022-04-19 06:57 | PC.NURSE ---
Pt refused narcan, stated that he already has two in his backpack. Pt also refused a list of available resources for detox/rehab, stated that he already knows where he plans to go for help.
== END 2022-04-19 07:00 | disposition home or self-care (01) ==
PROVIDERS: Emergency Provider Student in an Organized Health Care Education/Training Program
DX: T50.901A Poisoning by unspecified drugs, medicaments and biological substances, accidental (unintentional), initial encounter (principal); F11.90 Opioid use, unspecified, uncomplicated; Y92.9 Unspecified place or not applicable
CPT/HCPCS: 99282; 99285

== ENCOUNTER 2022-07-19 05:40 | Emergency (ER) | payer MEDICARE, MEDICAID, SELFPAY ==
[2022-07-19 05:42] VITALS: BP 124/75; PULSE 86; RESP 11; TEMP 36.7; O2SAT 97; BMI 25.0
== END 2022-07-19 09:33 | disposition left against medical advice (07) ==
PROVIDERS: Emergency Provider Emergency Medicine
DX: S90.821A Blister (nonthermal), right foot, initial encounter (principal); S90.822A Blister (nonthermal), left foot, initial encounter; X58.XXXA Exposure to other specified factors, initial encounter; Y93.9 Activity, unspecified; Y92.9 Unspecified place or not applicable; Y99.9 Unspecified external cause status
CPT/HCPCS: 99281

== ENCOUNTER 2022-11-17 08:30 | Emergency (ER) | payer MEDICARE, MEDICAID, SELFPAY ==
[2022-11-17 08:45] VITALS: BP 114/73; PULSE 86; RESP 16; TEMP 36.1; O2SAT 97; BMI 28.1
--- NOTE | 2022-11-17 08:48 | ED_ITS ---
HPI - Skin/Abscess/Foreign Bdy General Chief complaint: Skin/Abscess/Foreign Body Stated complaint: arm infection Time Seen by Provider: 11/17/22 08:47 Source: patient Mode of arrival: ambulatory Limitations: no limitations History of Present Illness HPI narrative: 37 yo male with history of IVDA, psoriasis who is presenting to the ER for evaluation of a tender abscess that has been worsening for the last 2-3 days. He reports the area has gotten more swollen and red. He also has a small area in his left underarm but it is not as bad. He denies injecting any drugs in the area. No fevers or chills. No drainage from the area. No history of axillary abscesses in the past, but he does report history of infections due to his drug use on his arms and legs in the past which have since resovled. complaint: abscess/boil Onset (ago): day(s) (3) Tetanus up to date: yes Location: RUE Severity: moderate Severity scale (1-10): 6 Quality: aching Pain Consistency: constant Relieving factors: none Exacerbating factors: palpation Context: IVDA Associated symptoms: itching Treatments prior to arrival: none Related Data Home Medications Medication Instructions Recorded Confirmed aripiprazole 400 mg intramuscular 1 vial IM Q4W 10/28/21 10/28/21 suspension,extended release (Abilify Maintena) Previous Rx's Medication Instructions Recorded cephalexin 500 mg capsule 500 mg PO Q6H 7 days #28 caps 11/17/22 doxycycline monohydrate 100 mg 100 mg PO BID #14 caps 11/17/22 capsule Allergies Allergy/AdvReac Type Severity Reaction Status Date / Time Penicillins [PENICILLINS] Allergy Unknown RASH Unverified 07/14/20 15:43 Review of Systems Review of Systems: Yes all other systems are reviewed and are negative PMFSH Past Medical History Medical History Schizoaffective disorder Social History Social History Alcohol intake: current Alcohol intake frequency: does not drink Alcohol type: beer Patient Tobacco Use Status: Current someday Tobacco user Smoked in Last 30 Days: Yes Use of substances other than those prescribed or required for medical reasons: Yes Substance Use Type: Crack/Cocaine Physical Exam Vital Signs: Vital Signs: Last Vital Signs Temp 97 F 11/17/22 08:45 Pulse 86 11/17/22 08:45 Resp 16 11/17/22 08:45 BP 114/73 11/17/22 08:45 Pulse Ox 97 11/17/22 08:45 O2 Del Method 11/17/22 08:45 BMI result Body Mass Index 28.1 Appearance: Alert. Oriented X3. No acute distress. HEENT: normal inspection. normal inspection of the nose and nares, no lesions or ulcerations CVS: Normal heart rate and rhythm. Pulses normal. Respiratory: No respiratory distress. Skin: Skin warm and dry. Normal skin color. Normal skin turgor. Red, dry, scaley rash on anterior chest wall, umbilicus, axillary areas Extremities: right underarm with a 3cm tender, swollen, fluctuant mass with erythema and warmth, no drainage, mild surrounding erythema and flakey rash. left forearm with track mora, no assoicated cellulitis or abscess Neuro: Oriented X 3. No motor deficit. No sensory deficit. Course Course Course Narrative: 37 yo male with history of IVDA, psoriasis presenting with right axillary abscess for the last 3 days. Amenable to I&D today. Minimal surrounding celluliis. Not associated with IVDA. No evidence of sepsis. Will I&D and send home with oral abx. Declining detox, says he has resources with [facility]. Reevaluation(s) Reevaluation #1: tolerated procedure well. stable for d/c home with abx Medical Decision Making Differential Diagnosis Differential Diagnoses: The differential diagnosis associated with the presentation includes hidradinitis suppurivta, abscess, furuncle, carbuncle, cellulitis, lipoma, folliculitis External Record Review External record reviewed: Inpatient record, Office record, Outpatient record and Prior outpatient labs recently left AMA after drug OD, was hypoxic Tests considered The following testing was considered but not selected: labs considered - not indicated. not an infection or abscess related to IVDA Prescription Management I considered prescription management with: Antibiotic will cover with abx for mild surrounding cellulitis and given high risk with IVDA Chronic Conditions Patient?s care impacted by: Other (IDVA) Social Determinants Patient?s care significantly limited by Social Determinants of Health including: Alcoholism and drug addiction in family Procedures Abscess I/D Site: upper extremity Side (if applicable): right Local Anesthetic: lidocaine 2% Amount of anesthesia used (mL): 1 Technique: incised with blade Sent for culture/gram staining?: No Irrigation: Yes Packing used?: none Critical Care Time Critical Care Time Critical Care Time: No Discharge Plan Discharge Clinical Impression: Abscess of skin or subcutaneous tissue Patient Disposition: Home, Self-Care Instructions: Abscess Incision and Drainage (DC) Additional Instructions: Use warm compresses to the area several times per day to help bring infection to the surface, increase blood flow and bring good bacteria fighting cells to the area. Take the prescribed antibiotics as directed. Complete the entire course and do not miss any doses. Take Motrin and Tylenol as needed for pain. Do not use IV drugs, they can kill you. Recommend detox. If you develop new or worsening symptoms call 911 or come back to the ER for further evaluation. Prescriptions: New cephalexin 500 mg capsule 500 mg PO Q6H 7 Days Qty: 28 0RF doxycycline monohydrate 100 mg capsule 100 mg PO BID Qty: 14 0RF No Action Abilify Maintena 400 mg suspension,extended rel recon 1 vial IM Q4W
[2022-11-17] MEDS: Lidocaine HCl 1 % 20 ML VIAL 5 ML INFILTRATI (09:07)
== END 2022-11-17 09:20 | disposition home or self-care (01) ==
LOC: HO.ED 09:17
PROVIDERS: Emergency Provider Emergency Medicine
DX: L02.411 Cutaneous abscess of right axilla (principal); L03.111 Cellulitis of right axilla; F19.10 Other psychoactive substance abuse, uncomplicated; F25.9 Schizoaffective disorder, unspecified; F17.200 Nicotine dependence, unspecified, uncomplicated
CPT/HCPCS: 10060; 99283; 99284

== ENCOUNTER 2023-08-03 09:31 | Emergency (ER) | payer MEDICARE, MEDICAID, SELFPAY ==
[2023-08-03 09:33] VITALS: BP 126/79; PULSE 86; RESP 19; TEMP 36.6; O2SAT 98; BMI 27.4
--- NOTE | 2023-08-03 10:12 | ED.EXTPRO ---
HPI - Extremity Problem General Chief complaint: Extremity Injury, Upper Stated complaint: R shoulder pain Time Seen by Provider: 08/03/23 10:28 Source: patient Mode of arrival: ambulatory Limitations: no limitations History of Present Illness HPI Narrative: 38 yo male right hand dominant with no known medical history here with complaints of right shoulder pain with lifting his arm after hitting a punching bag 2 days ago. no associated weakness, numbness, tingling of the extremity. No previous injury. Related Data Home Medications Medication Instructions Recorded Confirmed aripiprazole 400 mg intramuscular 1 vial IM Q4W 10/28/21 10/28/21 suspension,extended release (Abilify Maintena) Previous Rx's Medication Instructions Recorded cephalexin 500 mg capsule 500 mg PO Q6H 7 days #28 caps 11/17/22 doxycycline monohydrate 100 mg 100 mg PO BID #14 caps 11/17/22 capsule Allergies Allergy/AdvReac Type Severity Reaction Status Date / Time Penicillins [PENICILLINS] Allergy Unknown RASH Verified 08/03/23 09:33 Review of Systems Review of Systems: Yes all other systems are reviewed and are negative Constitutional: Constitutional: Reports no additional constitutional complaints, Denies body ache(s), Denies chills, Denies fever(s), Denies headache(s) and Denies weakness Eyes: Eyes: Reports no additional eye complaints and Denies change in vision ENT: Reports system reviewed and no additional complaints, except as documented, Denies dizziness, Denies headache(s), Denies nasal congestion, Denies nasal discharge and Denies neck pain Cardiovascular: Cardiovascular: Reports no additional cardiovascular complaints, Denies chest pain, Denies leg edema and Denies dyspnea Respiratory: Respiratory: Reports no additional respiratory complaints, Denies cough and Denies dyspnea Gastrointestinal: Gastrointestinal: Reports no additional gastrointestinal complaints, Denies abdominal pain, Denies diarrhea, Denies nausea and Denies vomiting Genitourinary: Genitourinary: Denies urinary incontinence Musculoskeletal: Musculoskeletal: Reports no additional musculoskeletal complaints, Denies back pain, Reports arthralgias, Denies joint swelling, Denies limited range of motion, Denies neck pain, Denies numbness and Denies tingling Integumentary/Breasts: Skin/Breast: Reports system reviewed and no additional complaints, except as docu and Denies rash Neurologic: Reports system reviewed and no additional complaints, except as documented, Denies Abnormal speech present, Denies dizziness, Denies headache(s), Denies numbness, Denies tingling and Denies weakness PMFSH Past Medical History Attestation statement: The following information was validated with the patient. Source: old records reviewed and nursing notes reviewed Medical History Schizoaffective disorder Social History Social History Alcohol intake: current Alcohol intake frequency: does not drink Alcohol type: beer Patient Tobacco Use Status: Current someday Tobacco user Substance Use Type: Crack/Cocaine Advance Directives: No Advance Directives Information Provided: Yes Physical Exam Vital Signs: Vital Signs: Last Vital Signs Temp 98 F 08/03/23 09:33 Pulse 86 08/03/23 09:33 Resp 19 08/03/23 09:33 BP 126/79 08/03/23 09:33 Pulse Ox 98 08/03/23 09:33 O2 Del Method Room Air 08/03/23 09:33 BMI result Body Mass Index 27.4 Const: General: cooperative, healthy appearing, comfortable and no acute distress Orientation/consciousness: patient oriented x3 Limitations: no limitations HEENT: Head: Yes normal to inspection Ears: hearing grossly normal bilaterally General nose exam: Normal external nose present Face and sinus: Yes normal facial exam Mouth: Normal oral and palatal mucosa present Throat: Yes posterior oropharynx normal Eyes: General: appearance normal, both eyes and all related structures Pupils: Equal, round and reactive pupils present Neck: Neck: Yes normal visual inspection Chest: Chest palpation & inspection: normal inspection of the chest Resp: Effort & Inspection: normal respiratory effort Auscultation: clear to auscultation bilaterally Cardio: Rate: regular rate Rhythm: regular rhythm Peripheral pulses: Peripheral pulses 2+ throughout GI: Inspection: Yes normal to inspection Palpation (GI): Soft to palpation and nontender Auscultation: normal bowel sounds Back/Spine/Pelvis: Thoracic/Lumbar Spine: thoracic and lumbar spine normal to inspection Skin: General skin exam: no rashes or lesions noted Neuro: General: patient oriented x3, no focal motor deficits and normal sensation to monofilament Cranial nerves: Yes Equal, round and reactive pupils present Cognition (Neuro): normal cognition Speech: No Abnormal speech present Gait exam (Neuro): Normal gait present Motor exam (neuro): 5/5 motor strength present throughout Extrem: Other: There is some mild tenderness the superior right shoulder was is worsened with abduction of the extremity. There is no obvious swelling or deformity noted. There is full passive and active range of motion of the extremity. There is normal distal sensation. There is normal radial and ulnar pulses. No tenderness on palpation over the right UE distal joints General: Yes normal to inspection Course Course Course Narrative: x-ray showed no fracture. Likely strain. Recommend supportive care at home. Patient tells me he is able to take ibuprofen at home and does not need a prescription for this. Reviewed worrisome signs and symptoms when to return to the emergency room. Comfortable plan for discharge home. Medical Decision Making Medical Decision Making [facility] Narrative: 38 yo male right hand dominant with no known medical history here with complaints of right shoulder pain with lifting his arm after hitting a punching bag 2 days ago. no associated weakness, numbness, tingling of the extremity. No previous injury. There is some mild tenderness the superior right shoulder was is worsened with abduction of the extremity. There is no obvious swelling or deformity noted. There is full passive and active range of motion of the extremity. There is normal distal sensation. There is normal radial and ulnar pulses. No tenderness on palpation over the right UE distal joints Plan:x-rays Differential Diagnosis Differential Diagnoses: The differential diagnosis associated with the presentation includes fracture, strain, sprain, dislocation low concern for vascular injury Admission/Observation Consideration of admission/observation: Escalation of care including admission/observation considered no evidence of complicated fracture, concern for dislocation or vascular injury requiring additional imaging and/or emergent orthopedic consultation Independent Interpretation I performed an independent interpretation of an: Plain X-Ray Interpretation: I independently reviewed the x-ray and agree with the radiology report Radiology Impression Discussion of test interpretation with radiology: I have reviewed the radiologist's reading. Radiologist Impression: [address] [address] XRay Report Signed Patient: Marvin Parker MR#: [id number] : 1985 Acct:[id number] Age/Sex: 38 / M ADM Date: 08/03/23 Loc: HO.ED Attending Dr: Ordering Physician: Danny Valderrama MD Date of Service: 08/03/23 Procedure(s): XR shoulder RT min 2V Accession Number(s): [id number] cc: Physician,None ; Danny Valderrama MD~ EXAMINATION: XR SHOULDER, RIGHT CLINICAL INFORMATION: Pain in right shoulder COMPARISON: None available. TECHNIQUE: AP external rotation, Grashey, scapular Y of the right shoulder. FINDINGS: The bones and soft tissues are normal. No fracture. Glenohumeral and acromioclavicular alignment is anatomic with normal joint space. No abnormal soft tissue calcifications. XR/XR shoulder RT min 2V IMPRESSION: Normal right shoulder. Tests considered The following testing was considered but not selected: no evidence of complicated fracture, concern for dislocation or vascular injury requiring additional imaging Prescription Management I considered prescription management with: Pain Medication Discharge Plan Discharge Clinical Impression: Right shoulder strain Patient Disposition: Home, Self-Care Instructions: Muscle Strain (ED) Additional Instructions: your x-ray show no fracture Apply heat or ice to the area No heavy lifting Gentle stretching Follow-up with your doctor in a few days for any continued symptoms take ibuprofen 3 times daily for the next few days to help with swelling and pain Prescriptions: No Action Abilify Maintena 400 mg suspension,extended rel recon 1 vial IM Q4W cephalexin 500 mg capsule 500 mg PO Q6H 7 Days Qty: 28 0RF doxycycline monohydrate 100 mg capsule 100 mg PO BID Qty: 14 0RF Referrals: Physician,None [Primary Care Provider] - 5 days (PCP for continued symptoms )
--- NOTE | 2023-08-03 12:08 | PC.NURSE ---
this nurse updated pt still awaiting radiology result- rad contacted via phone
--- NOTE | 2023-08-03 12:27 | PC.NURSE ---
spoke with adelso rad [phone]- weather forecaster reaching our to Gavin Thomas MD for read completion
--- NOTE | 2023-08-03 12:29 | PC.NURSE ---
pt updated re: rad read
== END 2023-08-03 12:49 | disposition home or self-care (01) ==
PROVIDERS: Emergency Provider Emergency Medicine Emergency Medical Services
DX: S46.911A Strain of unspecified muscle, fascia and tendon at shoulder and upper arm level, right arm, initial encounter (principal); W22.8XXA Striking against or struck by other objects, initial encounter; F17.200 Nicotine dependence, unspecified, uncomplicated; Y93.71 Activity, boxing; Y92.9 Unspecified place or not applicable; Y99.9 Unspecified external cause status
CPT/HCPCS: 73030; 99282; 99283

== ENCOUNTER 2023-10-11 22:57 | Emergency (ER) | payer MEDICARE, MEDICAID, SELFPAY ==
[2023-10-11 23:11] VITALS: BP 159/101; PULSE 112; RESP 18; TEMP 36.7; O2SAT 100; BMI 28.1
--- NOTE | 2023-10-11 23:35 | PC.NURSE ---
this rn assumed care of pt from waiting room. pt ambulatory and verbalized complaints. pt reports to this rn that would like to speak to crisis regarding home life [facility]. pt denies SI/ HI or thoughts of harm. supercharger mechanic made aware of pt request to speak to crisi per supercharger mechanic pt okay to remain in [facility] and await to be seen by ed provider.
--- NOTE | 2023-10-11 23:58 | ED_ITS ---
HPI - General Adult General Chief complaint: General Medical Stated complaint: Nose Infection? Time Seen by Provider: 10/11/23 23:58 Source: patient Mode of arrival: ambulatory Limitations: no limitations History of Present Illness HPI narrative: Patient is here substance abuse fentanyl cocaine feels at has drainage from the nose vague complaints while in the waiting area patient used cocaine in the bathroom when examined patient was falling asleep while talking patient asking for some help nonspecific denies any SI Related Data Home Medications Medication Instructions Recorded Confirmed aripiprazole 400 mg intramuscular 1 vial IM Q4W 10/28/21 10/28/21 suspension,extended release (Abilify Maintena) Previous Rx's Medication Instructions Recorded cephalexin 500 mg capsule 500 mg PO Q6H 7 days #28 caps 11/17/22 doxycycline monohydrate 100 mg 100 mg PO BID #14 caps 11/17/22 capsule Allergies Allergy/AdvReac Type Severity Reaction Status Date / Time Penicillins [PENICILLINS] Allergy Unknown RASH Verified 10/11/23 23:15 Review of Systems 2 Review of Systems: Yes all other systems are reviewed and are negative [facility] Past Medical History Medical History (Updated 10/12/23 @ 00:59 by Robert Velasquez MD) Fentanyl use disorder, moderate Cocaine abuse Schizoaffective disorder Social History Social History Alcohol intake: current Alcohol intake frequency: does not drink Alcohol type: beer Patient Tobacco Use Status: Current someday Tobacco user Substance Use Type: Crack/Cocaine Advance Directives: No Advance Directives Information Provided: No Physical Exam ED Vital Signs: Vital Signs - 24 hr 10/11/23 23:11 10/12/23 00:46 10/12/23 01:12 Temperature 98.0 F Pulse Rate 112 H 69 72 Respiratory Rate 18 20 Blood Pressure 159/101 H 112/70 Pulse Oximetry 100 97 97 Oxygen Delivery Method Room Air Room Air Room Air BMI result Body Mass Index 28.1 Appearance: Drowsy and falling sleep No acute distress. Eyes: PERRLA, No Nystagmus ENT: Pharynx normal. Oral Mucosa moist , clear nasal turbinate Neck: Normal inspection. Neck supple. CVS: Normal heart rate and rhythm. Pulses normal. Respiratory: No respiratory distress. Equal air entry bilateral, Abdomen: Soft and nontender. Bowel sounds are present, no mass palpable, no CVA tenderness Skin: Skin warm and dry. Normal skin color. Normal skin turgor. Extremities: No lower extremity edema. No calf tenderness Neuro: Oriented X 3. No motor deficit. No sensory deficit.No cerebellar signs , cranial nerves II-XII intact Medications Administered Discontinued Medications Generic Name Dose Route Start Last Admin Trade Name Freq PRN Reason Stop Dose Admin Naloxone HCl 4 mg 10/12/23 00:18 10/12/23 00:25 Naloxone Hcl Nasal 4 Mg [place] NOSTRILALT 10/12/23 00:19 4 mg ONCE ONE Administration Medical Decision Making Medical Decision Making MDM Narrative: Patient with substance abuse with history of schizoaffective disorder get care team involved for further evaluation Lab Data MDM Lab Attestation statement: I reviewed the patient's lab results. 10/12/23 01:07 10/12/23 01:07 Labs: Lab Results 10/12/23 Range/Units 01:07 WBC 7.4 (4.8-10.8) X10*3/uL RBC 4.72 (4.60-5.80) X10*6/uL Hgb 15.2 (14.0-18.0) g/dl Hct 42.0 (42.0-52.0) % MCV 89.0 (80.0-98.0) fL MCH 32.2 (27.0-33.0) pg MCHC 36.2 H (31.0-36.0) g/dl RDW 11.9 (11.0-16.0) % Plt Count 123 L D (160-400) X10*3/uL MPV 11.0 (9.4-12.4) fL Immature Gran % (Auto) 0.3 (0.0-0.4) % Neut % (Auto) 63.2 (45-73) % Lymph % (Auto) 21.6 (20-40) % [place] % (Auto) 13.3 H (2-11) % Eos % (Auto) 1.1 (0-4) % Baso % (Auto) 0.5 (0-2) % Lymph # (Auto) 1.6 (1.2-4.9) X10*3/uL [place] # (Auto) 1.0 (0.1-1.2) X10*3/uL Eos # (Auto) 0.1 (0.0-0.4) X10*3/uL Baso # (Auto) 0.0 (0.0-0.2) X10*3/uL Abs Immat Gran (auto) 0.02 (0.00-0.03) X10*3/uL Absolute Neuts (auto) 4.7 (2.0-8.3) x10*3/uL Absolute Nucleated RBC 0.000 (0.0-0.012) X10*3/uL Nucleated RBC % (auto) 0.0 (0.0-0.2) /100WBC Sodium 139 (135-145) mmol/L Potassium 3.2 L D (3.3-5.1) mmol/L Chloride 104 (96-108) mmol/L Carbon Dioxide 27 (22-29) mmol/L Anion Gap 11 L (12-20) BUN 14 (9-16) mg/dL Creatinine 0.74 (0.5-1.4) mg/dL Estim Creat Clear Calc 145.6 Estimated GFR > 60 Random Glucose 107 (60-115) mg/dL Calcium 9.0 (8.4-10.2) mg/dL Magnesium 2.0 (1.6-2.6) mg/dL Total Bilirubin 2.8 H (0.0-1.0) mg/dL ALT 230 H (0-40) U/L Alkaline Phosphatase 67 (39-117) U/L Total Protein 6.9 (6.5-8.0) g/dL Albumin 3.9 (3.5-5.0) g/dL Ethyl Alcohol < 10 mg/dL COVID-19 (DELMI) Negative (Negative) COVID-19 Clin Com See Note Discharge Plan Discharge Clinical Impression: Polysubstance abuse, Schizoaffective disorder Patient Disposition: Still a Patient Prescriptions: No Action Abilify Maintena 400 mg suspension,extended rel recon 1 vial IM Q4W cephalexin 500 mg capsule 500 mg PO Q6H 7 Days Qty: 28 0RF doxycycline monohydrate 100 mg capsule 100 mg PO BID Qty: 14 0RF
[2023-10-12] MEDS: Naloxone HCl Nasal 4 MG SPRAY NOSTRILALT (00:25)
[2023-10-12 00:46] VITALS: PULSE 69; O2SAT 97
--- NOTE | 2023-10-12 00:46 | PC.NURSE ---
assumed care of pt
--- NOTE | 2023-10-12 00:47 | PC.NURSE ---
dr liao to pt bedside at 0015 for assessment pt sitting on stretcher slow to respond pt noted to be drowsy this rn at bedside with ed provider pt admits to using cocaine in bathroom. bilat pupils dilated. spo2 97% RA. pt unable to verbalize reason for visit. pt pointing to nose and chest. tax associate attorney to bedside at this time. pt giving narcan nasally by this rn. pt changed over to hospital attire security at bedside for currency exchange specialist, pt removed drug paraphernalia from waistband of underwear. pt belongings in . pt moved to main ed bed 9 pt placed on heart monitor. this rn provided bedside report to chente harrell
[2023-10-12 01:11] LABS: MANUAL DIFF FLAG NO
[2023-10-12 01:12] VITALS: BP 112/70; PULSE 72; RESP 20; O2SAT 97
[2023-10-12 01:17] LABS: Basophils Percent Auto 0.5 % (0-2); Eosinophils Absolute Auto 0.1 X10*3/uL (0.0-0.4); Eosinophils Percent Auto 1.1 % (0-4); Hemoglobin 15.2 g/dl (14.0-18.0); Imm Gran Abs Auto 0.02 X10*3/uL (0.00-0.03); Imm Gran Pct Auto 0.3 % (0.0-0.4); Lymphocytes Absolute Auto 1.6 X10*3/uL (1.2-4.9); Lymphocytes Percent Auto 21.6 % (20-40); Mean Corpuscular HGB Conc 36.2 g/dl (31.0-36.0); Mean Corpuscular Hemoglobin 32.2 pg (27.0-33.0); Monocytes Percent Auto 13.3 % (2-11); Neutrophils Absolute Auto 4.7 x10*3/uL (2.0-8.3); Neutrophils Percent Auto 63.2 % (45-73); Platelet Count 123 X10*3/uL (160-400); Red Blood Count 4.72 X10*6/uL (4.60-5.80); Red Cell Distribution Width 11.9 % (11.0-16.0); White Blood Count 7.4 X10*3/uL (4.8-10.8)
[2023-10-12 01:29] LABS: COVID-19 Test Negative (Negative); IDNOW Serial# 6674DD1D
[2023-10-12 01:31] LABS: Alanine Aminotransferase 230 U/L (0-40); Albumin Level 3.9 g/dL (3.5-5.0); Alkaline Phosphatase 67 U/L (39-117); Anion Gap 11 (12-20); Bilirubin Total 2.8 mg/dL (0.0-1.0); Blood Urea Nitrogen 14 mg/dL (9-16); Carbon Dioxide 27 mmol/L (22-29); Chloride 104 mmol/L (96-108); Creatinine Clr Calc Pharmacy 145.6; Estimated Glomerular Filt Rate > 60; Ethanol < 10 mg/dL; Glucose Random 107 mg/dL (60-115); Potassium 3.2 mmol/L (3.3-5.1); Sodium 139 mmol/L (135-145); Total Protein 6.9 g/dL (6.5-8.0)
[2023-10-12 01:42] LABS: Aspartate Amino Transferase 117 U/L (5-37)
[2023-10-12 02:00] VITALS: BP 121/77; PULSE 80; RESP 16; TEMP 36.6; O2SAT 97
[2023-10-12 07:03] VITALS: BP 107/71; PULSE 71; RESP 13; TEMP 36.7; O2SAT 96
--- NOTE | 2023-10-12 07:16 | PC.NURSE ---
Resting quietly, breathing even and unlabored
--- NOTE | 2023-10-12 09:28 | MHC.RECOVRN ---
Met with pt in ED9 after request for Recovery Team to speak with patient. Pt had presented to the ED for ? nose infection. While in the bathroom, pt reported using cocaine, had dilated pupils, drowsy, and was given IN Narcan. Pt laying in bed, asleep, wakes to voice, difficult to engage in conversation. Pt reports using cocaine, an 8 ball the past 2 days. Denies other substances. Pt states I'm all done with that. Denies hx methadone or Suboxone. Pt reports he was only at [facility] for ? nose infection. Pt declines need for recovery support at this time, denies questions or concerns for t/w. Pt encouraged to return if he changes his mind or would like to speak further about recovery. RN aware.
--- NOTE | 2023-10-12 10:13 | PC.NURSE ---
Alert and responsive, declines rehab, remains with 1:1 for safety
[2023-10-12 11:15] VITALS: BP 102/59; PULSE 61; RESP 15; TEMP 36.7; O2SAT 96
--- NOTE | 2023-10-12 12:17 | PC.NURSE ---
Discharge plan reviewed with patient who verbalized understanding
--- NOTE | 2023-10-12 12:29 | ED.GENADULT ---
HPI - General Adult General Chief complaint: General Medical Stated complaint: Nose Infection? Time Seen by Provider: 10/11/23 23:58 Source: patient Mode of arrival: ambulatory Limitations: no limitations Related Data Home Medications Medication Instructions Recorded Confirmed aripiprazole 400 mg intramuscular 1 vial IM Q4W 10/28/21 10/28/21 suspension,extended release (Abilify Maintena) Previous Rx's Medication Instructions Recorded cephalexin 500 mg capsule 500 mg PO Q6H 7 days #28 caps 11/17/22 doxycycline monohydrate 100 mg 100 mg PO BID #14 caps 11/17/22 capsule doxycycline monohydrate 100 mg 100 mg PO BID #14 caps 10/12/23 capsule Allergies Allergy/AdvReac Type Severity Reaction Status Date / Time Penicillins [PENICILLINS] Allergy Unknown RASH Verified 10/11/23 23:15 [facility] Past Medical History Medical History (Updated 10/12/23 @ 12:11 by Ladarius Angelo MD) Fentanyl use disorder, moderate Cocaine abuse Schizoaffective disorder Social History Social History Alcohol intake: current Alcohol intake frequency: does not drink Alcohol type: beer Patient Tobacco Use Status: Current someday Tobacco user Substance Use Type: Crack/Cocaine Advance Directives: No Advance Directives Information Provided: No Physical Exam ED Vital Signs: Vital Signs - 24 hr 10/11/23 23:11 10/12/23 00:46 10/12/23 01:12 Temperature 98.0 F Pulse Rate 112 H 69 72 Respiratory Rate 18 20 Blood Pressure 159/101 H 112/70 Pulse Oximetry 100 97 97 Oxygen Delivery Method Room Air Room Air Room Air 10/12/23 02:00 10/12/23 07:03 10/12/23 11:15 Temperature 97.8 F 98.1 F 98.1 F Pulse Rate 80 71 61 Respiratory Rate 16 13 15 Blood Pressure 121/77 107/71 102/59 L Pulse Oximetry 97 96 96 Oxygen Delivery Method Room Air Room Air Room Air BMI result Body Mass Index 28.1 Medications Administered Discontinued Medications Generic Name Dose Route Start Last Admin Trade Name Freq PRN Reason Stop Dose Admin Naloxone HCl 4 mg 10/12/23 00:18 10/12/23 00:25 Naloxone Hcl Nasal 4 Mg [place] NOSTRILALT 10/12/23 00:19 4 mg ONCE ONE Administration Medical Decision Making Lab Data 10/12/23 01:07 10/12/23 01:07 Labs: Lab Results 10/12/23 Range/Units 01:07 WBC 7.4 (4.8-10.8) X10*3/uL RBC 4.72 (4.60-5.80) X10*6/uL Hgb 15.2 (14.0-18.0) g/dl Hct 42.0 (42.0-52.0) % MCV 89.0 (80.0-98.0) fL MCH 32.2 (27.0-33.0) pg MCHC 36.2 H (31.0-36.0) g/dl RDW 11.9 (11.0-16.0) % Plt Count 123 L D (160-400) X10*3/uL MPV 11.0 (9.4-12.4) fL Immature Gran % (Auto) 0.3 (0.0-0.4) % Neut % (Auto) 63.2 (45-73) % Lymph % (Auto) 21.6 (20-40) % [place] % (Auto) 13.3 H (2-11) % Eos % (Auto) 1.1 (0-4) % Baso % (Auto) 0.5 (0-2) % Lymph # (Auto) 1.6 (1.2-4.9) X10*3/uL [place] # (Auto) 1.0 (0.1-1.2) X10*3/uL Eos # (Auto) 0.1 (0.0-0.4) X10*3/uL Baso # (Auto) 0.0 (0.0-0.2) X10*3/uL Abs Immat Gran (auto) 0.02 (0.00-0.03) X10*3/uL Absolute Neuts (auto) 4.7 (2.0-8.3) x10*3/uL Absolute Nucleated RBC 0.000 (0.0-0.012) X10*3/uL Nucleated RBC % (auto) 0.0 (0.0-0.2) /100WBC Sodium 139 (135-145) mmol/L Potassium 3.2 L D (3.3-5.1) mmol/L Chloride 104 (96-108) mmol/L Carbon Dioxide 27 (22-29) mmol/L Anion Gap 11 L (12-20) BUN 14 (9-16) mg/dL Creatinine 0.74 (0.5-1.4) mg/dL Estim Creat Clear Calc 145.6 Estimated GFR > 60 Random Glucose 107 (60-115) mg/dL Calcium 9.0 (8.4-10.2) mg/dL Magnesium 2.0 (1.6-2.6) mg/dL Total Bilirubin 2.8 H (0.0-1.0) mg/dL AST 117 H (5-37) U/L ALT 230 H (0-40) U/L Alkaline Phosphatase 67 (39-117) U/L Total Protein 6.9 (6.5-8.0) g/dL Albumin 3.9 (3.5-5.0) g/dL Ethyl Alcohol < 10 mg/dL COVID-19 (DELMI) Negative (Negative) COVID-19 Clin Com See Note Discharge Plan Discharge Clinical Impression: Nasal and sinus discharge Patient Disposition: Home, Self-Care Additional Instructions: I think it would be reasonable for you to take a course of antibiotics to see if this helps your nasal symptoms. I have sent a prescription for doxycycline to your pharmacy. Please take this medication 2 times a day. Please working getting a new primary care doctor. If use any injectable drugs please do your best to use clean needles. Return to the emergency room if you feel worse or if you change your mind about wanting to try to get help with any addictions. Prescriptions: New doxycycline monohydrate 100 mg capsule 100 mg PO BID Qty: 14 0RF No Action Abilify Maintena 400 mg suspension,extended rel recon 1 vial IM Q4W cephalexin 500 mg capsule 500 mg PO Q6H 7 Days Qty: 28 0RF doxycycline monohydrate 100 mg capsule 100 mg PO BID Qty: 14 0RF Interventions: ED Discharge Assessment Last Done: 10/12/23 12:17 Discharge Date/Time: 10/12/23 12:18
== END 2023-10-12 12:19 | disposition home or self-care (01) ==
PROVIDERS: Emergency Provider Internal Medicine
DX: F25.9 Schizoaffective disorder, unspecified (principal); F14.10 Cocaine abuse, uncomplicated; F17.200 Nicotine dependence, unspecified, uncomplicated; Z71.6 Tobacco abuse counseling; Z11.52 Encounter for screening for COVID-19; Z20.828 Contact with and (suspected) exposure to other viral communicable diseases; Z79.899 Other long term (current) drug therapy
CPT/HCPCS: 80053; 80307; 83735; 85025; 87635; 99284

== ENCOUNTER 2023-12-10 20:45 | Emergency (ER) | payer MEDICARE, MEDICAID, SELFPAY ==
[2023-12-10 20:59] VITALS: BP 127/82; PULSE 110; RESP 18; TEMP 37.2; O2SAT 97; BMI 28.1
--- NOTE | 2023-12-10 22:46 | PC.NURSE ---
patient left this ED , he was in Room 3, when this nurse went to give his ordered antibiotic he was not in the room, checked both bathrooms and not present.
--- NOTE | 2023-12-10 22:48 | ED.GENADULT ---
HPI - General Adult General Chief complaint: General Medical Stated complaint: ? nasal infection Time Seen by Provider: 12/10/23 21:46 Source: patient Mode of arrival: ambulatory Limitations: no limitations History of Present Illness HPI narrative: Patient comes to the emergency room complaining of pain and erythema around the nostril on the left side. Patient states that he had cellulitis approximately 2 months ago, given antibiotics and improved. Patient states that throughout the last few days, it has gradually been getting worse. Patient denies any drainage. Related Data Home Medications Medication Instructions Recorded Confirmed aripiprazole 400 mg intramuscular 1 vial IM Q4W 10/28/21 10/28/21 suspension,extended release (Abilify Maintena) Previous Rx's Medication Instructions Recorded cephalexin 500 mg capsule 500 mg PO Q6H 7 days #28 caps 11/17/22 doxycycline monohydrate 100 mg 100 mg PO BID #14 caps 11/17/22 capsule doxycycline monohydrate 100 mg 100 mg PO BID #14 caps 10/12/23 capsule cephalexin 500 mg capsule 500 mg PO BID #13 caps 12/10/23 Allergies Allergy/AdvReac Type Severity Reaction Status Date / Time Penicillins [PENICILLINS] Allergy Unknown RASH Verified 12/10/23 21:02 Review of Systems Review of Systems: Constitutional : No Weight loss, No Fever, No Chills, No Night Sweats, No Fatigue, No Malaise ENT/Mouth : Complaining of cellulitis around the left nostril, No Hearing loss, No Ear Pain, No Nasal Congestion, No Sinus Pain, No Hoarseness, No sore throat, No Rhinorrhea, No Swallowing Difficulty Eyes: No Eye Pain, No Swelling, No Redness, No Foreign Body, No Discharge, No Vision Changes Cardiovascular : No Chest Pain, No SOB, No Dyspnea on Exertion, No Orthopnea, No Edema, No Palpitations Respiratory : No Cough, No Sputum, No Wheezing, No Smoke Exposure, No Dyspnea Gastrointestinal : No Nausea, No Vomiting, No Diarrhea, No Constipation, No abdominal Pain, No Hematochezia, No Melena Genitourinary : no irregular bleeding, No Dysuria, No Urinary Frequency, No Hematuria, No Urinary Incontinence, No Urgency, No Flank Pain, No Urinary Flow Changes, No Hesitancy Musculoskeletal : No joint pain, No Myalgias, No Joint Swelling Skin : No Skin Lesions, No rash Neuro : No Weakness, No Numbness, No Paresthesias, No Loss of Consciousness, No Dizziness, No Headache Psych : No Anxiety/Panic, No Depression, No SI/HI/AH/VH, No Social Issues, Heme/Lymph: No Bruising, No Bleeding,No Lymphadenopathy Endocrine : No Polyuria, No Polydipsia, No Temperature Intolerance PMF Past Medical History Medical History Fentanyl use disorder, moderate Cocaine abuse Schizoaffective disorder Social History Social History Alcohol intake: current Alcohol intake frequency: does not drink Alcohol type: beer Patient Tobacco Use Status: Current someday Tobacco user Smoked in Last 30 Days: Yes Substance Use Type: Crack/Cocaine Substance Use Frequency: Weekly Last Used Substance: Hours (ago) Any prior treatment program specific to substance use: No Advance Directives: No Advance Directives Information Provided: No Physical Exam ED Vital Signs: Vital Signs - 24 hr 12/10/23 20:59 Temperature 99.0 F Pulse Rate 110 H Respiratory Rate 18 Blood Pressure 127/82 Pulse Oximetry 97 Oxygen Delivery Method Room Air BMI result Body Mass Index 28.1 Const Other: Appearance: Alert. Oriented X3. No acute distress. Eyes: Pupils equal, round and reactive to light. ENT: Pharynx normal. Skin around the edge of the nostril is erythematous, mildly swollen, no significant pain to palpation, no obvious abscess. Neck: Normal inspection. Neck supple. No lymph nodes noted. No crepitus CVS: Normal heart rate and rhythm. Pulses normal. Normal S1 and S2 Respiratory: No respiratory distress. Breath sounds normal. No Wheezing. No rales Abdomen: Soft and nontender. No rigidity. No distention. Skin: Skin warm and dry. Normal skin color. Normal skin turgor. Extremities: No lower extremity edema. No Lacerations. No Rash Neuro: Oriented X 3. No motor deficit. No sensory deficit. Moving all extremities. No slurred speech. CN 2 through 12 grossly intact Psych: calm, cooperative, normal affect Medical Decision Making Medical Decision Making MDM Narrative: -I discussed the physical exam with the patient, patient likely has cellulitis. Patient known to sniff cocaine -patient was given the 1st dose of cephalexin in the ED. -patient's vitals stable, no fever or chills, sepsis not suspected Differential Diagnosis Differential Diagnoses: The differential diagnosis associated with the presentation includes (Abscess, cellulitis, dermatitis) Discharge Plan Discharge Clinical Impression: Cellulitis of nose Patient Disposition: Home, Self-Care Instructions: Cellulitis (ED) Additional Instructions: Please follow-up with your primary care physician tomorrow. If you have any worsening or new symptoms, please return to the emergency room or call 911 Prescriptions: New cephalexin 500 mg capsule 500 mg PO BID Qty: 13 0RF No Action Abilify Maintena 400 mg suspension,extended rel recon 1 vial IM Q4W cephalexin 500 mg capsule 500 mg PO Q6H 7 Days Qty: 28 0RF doxycycline monohydrate 100 mg capsule 100 mg PO BID Qty: 14 0RF doxycycline monohydrate 100 mg capsule 100 mg PO BID Qty: 14 0RF
--- NOTE | 2023-12-10 22:48 | PC.NURSE ---
notified Dr Julio about status of patient leaving this ED
== END 2023-12-10 22:50 | disposition left against medical advice (07) ==
PROVIDERS: Emergency Provider Emergency Medicine
DX: J34.0 Abscess, furuncle and carbuncle of nose (principal); F17.210 Nicotine dependence, cigarettes, uncomplicated; Z79.899 Other long term (current) drug therapy
CPT/HCPCS: 99283

== ENCOUNTER 2024-10-07 09:29 | Emergency (ER) | payer MEDICARE, MEDICAID, SELFPAY ==
--- NOTE | ~2024-10-07 | XR_ITS ---
EXAMINATION: XR ANKLE, RIGHT CLINICAL INFORMATION: Injury, patient states he twisted ankle while walking, obvious swelling. COMPARISON: None available. TECHNIQUE: AP, lateral, and mortise views of the right ankle. FINDINGS: Ankle joint effusion with soft tissue swelling. Small ossicle at the plantar aspect of the arch of the foot. Talar dome and ankle mortise are preserved. Alignment maintained. XR/XR ankle RT min 3V IMPRESSION: Ankle joint effusion with soft tissue swelling. Small ossicle at the plantar aspect of the arch of the foot. This study was presented today to October 07, 2024 for interpretation. Stat results provided at this time as requested by referring provider. Electronically signed by: Kim Pittman MD 10/07/2024 10:36 AM [facility]
[2024-10-07 09:38] VITALS: BP 136/77; PULSE 92; RESP 18; TEMP 36.2; O2SAT 97; BMI 26.6
--- NOTE | 2024-10-07 12:15 | ED.GENADULT ---
HPI - General Adult General Chief complaint: Extremity Injury, Lower Stated complaint: leg pain Time Seen by Provider: 10/07/24 12:09 Source: patient Mode of arrival: ambulatory Limitations: no limitations History of Present Illness ED Provider: long BROUSSARD narrative: Patient is a 39-year-old male with history of schizoaffective disorder, cocaine abuse, fentanyl use disorder presenting to the emergency department with complaint of right ankle pain and swelling for the past 3 days. Unsure of specific injury, thinks he may have twisted his ankle while ambulating. States pain is worse with ambulation, radiates up lower leg. Has not taken any OTC medications for his pain. complaint: right ankle pain Onset (ago): day(s) Quality: aching Treatments prior to arrival: none Related Data Home Medications ?Medication ?Instructions ?Recorded ?Confirmed aripiprazole 400 mg intramuscular 1 vial IM Q4W 10/28/21 10/28/21 suspension,extended release (Abilify Maintena) Previous Rx's ?Medication ?Instructions ?Recorded cephalexin 500 mg capsule 500 mg PO Q6H 7 days #28 caps 11/17/22 doxycycline monohydrate 100 mg 100 mg PO BID #14 caps 11/17/22 capsule doxycycline monohydrate 100 mg 100 mg PO BID #14 caps 10/12/23 capsule cephalexin 500 mg capsule 500 mg PO BID #13 caps 12/10/23 Allergies Allergy/AdvReac Type Severity Reaction Status Date / Time Penicillins [PENICILLINS] Allergy Unknown RASH Verified 10/07/24 09:39 Review of Systems Review of Systems: As per HPI Yes all other systems are reviewed and are negative Constitutional: Constitutional: Reports as per HPI [facility] Past Medical History Medical History Fentanyl use disorder, moderate Cocaine abuse Schizoaffective disorder Social History Social History Alcohol intake: current Alcohol intake frequency: does not drink Alcohol type: beer Patient Tobacco Use Status: Current someday Tobacco user Substance Use Type: Crack/Cocaine Advance Directives: No Advance Directives Information Provided: Yes Physical Exam ED Vital Signs: Vital Signs - 24 hr 10/07/24 09:38 Temperature 97.1 F Pulse Rate 92 Respiratory Rate 18 Blood Pressure 136/77 Pulse Oximetry 97 Oxygen Delivery Method Room Air BMI result Body Mass Index 26.6 Vital signs have been reviewed and appear to be correct. Blood pressure normal. Heart rate normal. Respiratory rate normal. Temperature normal. Oxygen saturation normal. Const General: cooperative, healthy appearing and no acute distress Orientation/consciousness: oriented to person, oriented to place, oriented to time and patient oriented x3 Limitations: no limitations HENMT Head: Yes normocephalic and Yes atraumatic Ears: external ears normal General nose exam: Normal external nose present Face and sinus: Yes face symmetric Mouth: oropharynx normal and moist mucous membranes Throat: Yes uvula midline Eyes Pupils: Equal, round and reactive pupils present Neck Neck: Yes normal visual inspection and Yes supple Resp Effort & Inspection: normal respiratory effort and able to speak in complete sentences Auscultation: clear to auscultation bilaterally Cardio Rate: regular rate Rhythm: regular rhythm Heart sounds: S1 normal heart sound present and S2 normal heart sound present GI Palpation (GI): Soft to palpation and nontender Auscultation: normoactive bowel sounds General: Yes no CVA tenderness Back/Spine/Pelvis Back: no CVA tenderness Skin General skin exam: elasticity normal and turgor normal Neuro General: oriented to person, oriented to place, oriented to time, patient oriented x3, moves all extremities, no focal motor deficits and CN's II-XI intact bilaterally Cranial nerves: Yes Equal, round and reactive pupils present Cognition (Neuro): normal cognition Extrem General: Yes full ROM, Yes no pedal edema and Yes no calf tenderness Right lower extremity: ankle Details: tenderness (medial distal lower leg), swelling Details: medially (distal) and normal ROM; no ecchymosis and no crepitus and foot Details: vascular exam Details: dorsalis pedis pulse present, posterior tibial pulse present and normal capillary refill Psych Mental Status: mental status grossly normal Affect: normal affect Thought process: Normal thought process present Medical Decision Making Medical Decision Making MDM Narrative: Patient is a 39-year-old male with history of schizoaffective disorder, cocaine abuse, fentanyl use disorder presenting to the emergency department with complaint of right ankle pain and swelling for the past 3 days. On exam patient is awake, A+Ox3, VS WNL, afebrile, normal neurological exam without focal deficits, physical exam findings as above. Given reported symptoms and physical exam findings, initial differential includes right ankle strain, sprain, fracture. X-ray notable for soft tissue swelling, no acute fracture or dislocation. My interpretation is in agreement with the radiologist's interpretation. Results discussed with patient and all questions answered. Offered an air splint as well as an Jayy wrap, both of which patient declined. Advised him to elevate ankle while at rest, use Tylenol and ibuprofen as needed. Will refer to orthopedics for follow-up as necessary. Return precautions discussed at bedside. Patient verbalized understanding of and agreement with plan. Differential Diagnosis Differential Diagnoses: The differential diagnosis associated with the presentation includes As per MDM. Independent Interpretation I performed an independent interpretation of an: Plain X-Ray Interpretation: X-ray notable for soft tissue swelling, no acute fracture or dislocation. Radiology Impression Discussion of test interpretation with radiology: I have reviewed the radiologist's reading. Radiologist Impression: XR/XR ankle RT min 3V IMPRESSION: Ankle joint effusion with soft tissue swelling. Small ossicle at the plantar aspect of the arch of the foot. External Record Review External record reviewed: Inpatient record, Office record and Outpatient record Discharge Plan Discharge Clinical Impression: Right ankle sprain Patient Disposition: Home, Self-Care Instructions: Ankle Sprain (DC), R.I.C.E. Treatment (ED) Additional Instructions: You were evaluated in the emergency department today for ankle pain. Your x-rays did not show evidence of fracture. You declined a splint and JAYY wrap in the ED. we recommend that you elevate the area while at rest, apply ice several times daily for 10-15 minutes at a time, using caution not to apply ice directly to skin. You can take 600 mg of ibuprofen or 650 mg Tylenol every 6 hours as needed for pain. Follow-up with orthopedics if symptoms persist beyond the next 1-2 weeks. Return to the emergency department if you develop increasing pain, you redness, swelling, change of color in your leg or foot or any other concerning symptoms. Prescriptions: No Action Abilify Maintena 400 mg suspension,extended rel recon 1 vial IM Q4W cephalexin 500 mg capsule 500 mg PO Q6H 7 Days Qty: 28 0RF doxycycline monohydrate 100 mg capsule 100 mg PO BID Qty: 14 0RF doxycycline monohydrate 100 mg capsule 100 mg PO BID Qty: 14 0RF cephalexin 500 mg capsule 500 mg PO BID Qty: 13 0RF Referrals: [facility] [place] [facility] [Provider Group] Print Language: [place]
[2024-10-07 12:48] VITALS: BP 136/77; PULSE 92; RESP 18; TEMP 36.2; O2SAT 97
== END 2024-10-07 12:49 | disposition home or self-care (01) ==
PROVIDERS: Emergency Provider Emergency Medicine
DX: S93.401A Sprain of unspecified ligament of right ankle, initial encounter (principal); X50.1XXA Overexertion from prolonged static or awkward postures, initial encounter; Y93.9 Activity, unspecified; Y92.9 Unspecified place or not applicable; Y99.9 Unspecified external cause status
CPT/HCPCS: 73610; 99282; 99283